=== PATIENT | female | born 1985 | race Native Hawaiian/Other Pacific Islander ===

== ENCOUNTER 2016-11-13 15:46 | Outpatient (CLI) | payer OTHER | END 2016-11-13 16:50 | disposition home or self-care (01) | LOC: RAD 15:46 | DX: M54.6 Pain in thoracic spine (principal) ==

== ENCOUNTER 2016-11-26 14:13 | Outpatient (CLI) | payer OTHER | END 2016-11-26 15:30 | disposition home or self-care (01) | LOC: MRI 14:13 | DX: M47.16 Other spondylosis with myelopathy, lumbar region (principal) ==

== ENCOUNTER 2017-07-02 11:58 | Outpatient (CLI) | payer OTHER | END 2017-07-02 19:17 | disposition home or self-care (01) | LOC: RAD 11:58 | DX: M54.12 Radiculopathy, cervical region (principal); M54.6 Pain in thoracic spine ==

== ENCOUNTER 2017-08-05 10:39 | Outpatient (CLI) | payer OTHER | END 2017-08-05 21:40 | disposition home or self-care (01) | LOC: MRI 10:39 | DX: M54.6 Pain in thoracic spine (principal) ==

== ENCOUNTER 2018-11-09 15:48 | Outpatient (CLI) | payer OTHER | END 2018-11-09 23:20 | disposition home or self-care (01) | LOC: LABW 15:48 | DX: Z01.810 Encounter for preprocedural cardiovascular examination (principal) | CPT/HCPCS: 36415; 84702 ==

== ENCOUNTER 2018-12-27 10:43 | Outpatient (CLI) | payer OTHER | END 2018-12-27 23:19 | disposition home or self-care (01) | LOC: MRI 10:43 | DX: S06.369A Traumatic hemorrhage of cerebrum, unspecified, with loss of consciousness of unspecified duration, initial encounter (principal); R40.20 Unspecified coma; R40.4 Transient alteration of awareness ==